=== PATIENT | male | born 1965 | race Caucasian/White ===

== ENCOUNTER 2020-12-01 10:26 | Day surgery (SDC) | payer MEDICAID ==
[2020-11-30 12:58] LABS: COVID AG,FIA SOURCE NASOPHARYNGEAL
[~2020-12-01] VITALS: Ht 175.3 cm; Wt 104.5 kg
[~2020-12-01 10:26] MED LIST: SODIUM CHLORIDE 0.9% 1,000 ML ONE
[2020-12-01] MEDS ORDERED: PROPOFOL 1% 20 ML VIAL IVP ONE (10:27)
[2020-12-01] MEDS ORDERED: LIDOCAINE/PF 2% 5 ML SYRINGE IVP ONE (10:27)
[2020-12-01] MEDS ORDERED: MELO-107 PO (10:42)
[2020-12-01] MEDS ORDERED: CETI-450 PO (10:42)
[2020-12-01] MEDS ORDERED: ASPI-1450 PO (10:42)
[2020-12-01] MEDS ORDERED: SODIUM CHLORIDE 0.9% 1,000 ML IV ONE (11:30)
== END 2020-12-01 14:20 | disposition home or self-care (01) ==
LOC: SURGERY 10:26
PROVIDERS: ATTEND Internal Medicine Gastroenterology
DX: R19.5 Other fecal abnormalities (principal); K64.8 Other hemorrhoids; K29.50 Unspecified chronic gastritis without bleeding; K21.00 Gastro-esophageal reflux disease with esophagitis, without bleeding; Z98.890 Other specified postprocedural states; Z79.82 Long term (current) use of aspirin; Z79.899 Other long term (current) drug therapy; Z87.891 Personal history of nicotine dependence
CPT/HCPCS: 45378; 43239; 87426; 88305; 88312; 88313; C1769; C9803; J2704; J3490; J7030